=== PATIENT | female | born 1975 | race Caucasian/White ===

== ENCOUNTER 2021-09-04 09:46 | Outpatient (REF) | payer OTHER, SELFPAY ==
--- NOTE | 2021-09-04 09:30 | PAPFT_PTH ---
PATIENT: Monica Reece LOC: [facility] U#:[id number] AGE/SX: 46/F ROOM: RE09/04/[address]: Flaca Humphries NP : 1975 BED: DIS: 09/04/2021 SPEC #: [id number] RECD: 09/04/21 13:00 STATUS: JOSE ANTONIO PIZARRO #: [id number] CATHY: 09/04/21 09:[address]: Flaca Humphries NP DEPT: [facility] Cytology RECD BY: Zandra Armenta Tissues: 1 - CX/ENDOCX FOR PAP SMEARS Procedures: PAP THIN PREP/[facility] Screening HPV DNA PROBE Comments: [id number] (CHLAMYDIA/GC)
[2021-09-05 15:22] LABS: Chlamydia Result Negative (Negative); GC Result Negative (Negative)
== END 2021-09-04 09:47 | disposition home or self-care (01) ==
LOC: LBN 09:46
PROVIDERS: Visit Provider Nurse Practitioner Women's Health
DX: Z11.3 Encounter for screening for infections with a predominantly sexual mode of transmission (principal); Z12.4 Encounter for screening for malignant neoplasm of cervix; Z11.51 Encounter for screening for human papillomavirus (HPV); R87.618 Other abnormal cytological findings on specimens from cervix uteri
CPT/HCPCS: 87491; 87591; 88142; 87624

== ENCOUNTER 2022-02-16 12:51 | Outpatient (REF) | payer OTHER, SELFPAY | END 2022-02-16 12:52 | disposition home or self-care (01) | LOC: LBN 12:51 | PROVIDERS: Visit Provider Obstetrics & Gynecology | DX: N89.8 Other specified noninflammatory disorders of vagina (principal); Z11.3 Encounter for screening for infections with a predominantly sexual mode of transmission | CPT/HCPCS: 87480; 87510; 87660 ==

== ENCOUNTER 2022-07-23 15:04 | Outpatient (REF) | payer OTHER, SELFPAY | END 2022-07-23 15:05 | disposition home or self-care (01) | LOC: LBN 15:04 | PROVIDERS: Visit Provider Nurse Practitioner Women's Health | DX: N76.0 Acute vaginitis (principal); R30.0 Dysuria | CPT/HCPCS: 87077; 87086; 87186; 87480; 87510; 87660 ==